=== PATIENT | male | born 1995 | race Caucasian/White ===

== ENCOUNTER 2023-05-06 07:07 | Emergency (ER) | payer BC ==
[2023-05-06 07:21] VITALS: BP 139/87; PULSE 69
== END 2023-05-06 07:42 | disposition home or self-care (01) ==
LOC: VM.ED 07:07
DX: L60.0 Ingrowing nail (principal); L03.011 Cellulitis of right finger; J45.909 Unspecified asthma, uncomplicated
CPT/HCPCS: 99283